=== PATIENT | male | born 1955 | race Caucasian/White ===

== ENCOUNTER → 2022-03-10 | Outpatient (CLI) | payer MEDICARE, OTHER ==
[~2022-03-10] MED LIST: ENAL20TA16 PO
--- NOTE | 2022-03-10 12:32 | Diagnostic Imaging Report ---
PROCEDURE: CT abdomen and pelvis without contrast. TECHNIQUE: Multiple contiguous axial images were obtained through the abdomen and pelvis without the use of intravenous contrast. Auto Exposure Controls were utilized during the CT exam to meet ALARA standards for radiation dose reduction. INDICATION: Recently diagnosed prostate carcinoma. No prior studies are available for comparison. The lung bases are clear. Liver does contain several low-attenuation lesions. These are too small to characterize but may represent small cysts. Close follow-up would be recommended. Gallbladder is unremarkable. There is no biliary duct dilatation. Pancreas and spleen are unremarkable. No adrenal mass is identified. No renal calculi are detected. There is no hydronephrosis. Aorta is nonaneurysmal. No central retroperitoneal or mesenteric lymphadenopathy is detected. No definite iliac or inguinal lymphadenopathy is identified. Bowel loops are of normal caliber. There is no obstruction. There is diverticulosis of the descending and sigmoid colon but no evidence of acute diverticulitis. No free fluid is seen. There is no fluid collection. Bladder and prostate are unremarkable. No definite osteolytic or blastic lesions are seen. IMPRESSION: 1. Hepatic low-attenuation lesions, perhaps cysts. Follow-up is recommended. 2. No evidence of abdominal or pelvic lymphadenopathy. 3. Uncomplicated diverticulosis. Dictated by: Dictated on workstation # [id number]
--- NOTE | 2022-03-10 16:18 | Diagnostic Imaging Report ---
INDICATION: Prostate cancer. TECHNIQUE: Patient was administered 26.9 mCi technetium 99m MDP intravenously and whole-body imaging was performed after a three-hour delay. COMPARISON: No prior bone scans are available for comparison. FINDINGS: There is normal uptake of activity by the axial and appendicular skeleton. There is uptake by the kidneys with excretion into urinary bladder. There is uptake involving bilateral shoulders, knees and feet which is likely degenerative. There is some uptake in the lower cervical spine as well which may be degenerative. No suspicious foci are identified to suggest osseous metastatic disease. IMPRESSION: No scintigraphic evidence of osseous metastatic disease. Dictated by: Dictated on workstation # [id number]
== END ==
LOC: CARD 11:17
PROVIDERS: ATTEND Urology
DX: C61 Malignant neoplasm of prostate (principal); K57.90 Diverticulosis of intestine, part unspecified, without perforation or abscess without bleeding
CPT/HCPCS: 74176; 78306; A9503

== ENCOUNTER → 2022-05-31 | Outpatient (CLI) | payer MEDICARE, OTHER ==
--- NOTE | 2022-05-31 16:42 | Diagnostic Imaging Report ---
PROCEDURE: CT pelvis without contrast. TECHNIQUE: Multiple contiguous axial images were obtained through the pelvis without the use of intravenous contrast. Sagittal and coronal reformations were performed. Auto Exposure Controls were utilized during the CT exam to meet ALARA standards for radiation dose reduction. DATE: May 31, 2022. INDICATION: 66-year-old male, right lower extremity swelling after prostatectomy on May 05, 2022. COMPARISON: CT abdomen and pelvis March 10, 2022. FINDINGS: There are bilateral L5 pars interarticularis defects with grade 1 anterolisthesis of L5 on S1 measuring 8 mm. There is severe disc height loss at L5-S1. There is grade 1 retrolisthesis of L4 on L5. The sacroiliac joints are grossly unremarkable in appearance. The joint spaces of both hips are fairly well preserved. There is no identified acute bony abnormality. There is a 5 mm sclerotic focus in the left iliac bone on axial image 27 which is unchanged since at least March 10, 2022. There is a small focus of gas in the urinary bladder which is underdistended and not well evaluated. There is a small amount of free pelvic fluid. There is generalized subcutaneous edema in the anterior abdominal wall and mild subcutaneous edema at the level of the right and left lateral thigh. There are atherosclerotic calcifications. The prostate gland is absent. There is mild diverticulosis without evidence of acute diverticulitis. IMPRESSION: 1. Small amount of free fluid in the pelvis without focal fluid collection. 2. Nonspecific generalized subcutaneous edema in the anterior abdominal wall as well as mild lateral subcutaneous edema at the level of the right and left thighs. 3. Bilateral L5 pars intra-articular is defects with grade 1 anterolisthesis of L5 on S1. There is severe disc degenerative changes at L5-S1. 4. There is a 5 mm sclerotic lesion in the left iliac bone, unchanged since at least March 10, 2022. Dictated by: Dictated on workstation # [id number]
== END ==
LOC: RAD 13:15
PROVIDERS: ATTEND Urology
DX: C61 Malignant neoplasm of prostate (principal); M43.17 Spondylolisthesis, lumbosacral region; M51.37 Other intervertebral disc degeneration, lumbosacral region; R60.0 Localized edema
CPT/HCPCS: 72192